=== PATIENT | male | born 1975 | race Caucasian/White ===

== ENCOUNTER 2019-03-11 11:21 | Emergency (ER) | payer OTHER ==
[~2019-03-11] VITALS: Ht 177.8 cm; Wt 79.4 kg
[2019-03-11] MEDS ORDERED: IBUPROFEN 800800 M1 PO (12:58)
[2019-03-11] MEDS ORDERED: NORCO 5-325 TA1 EAC1 PO (12:58)
[2019-03-11] MEDS ORDERED: KEFLEX500 M1 PO (12:58)
[2019-03-11] MEDS ORDERED: DOXYCYCLINE 10100 MG PO (12:58)
[2019-03-11 13:43] VITALS: BP 125/78
== END 2019-03-11 13:43 | disposition home or self-care (01) ==
LOC: M.ERS 11:21
DX: S62.511B Displaced fracture of proximal phalanx of right thumb, initial encounter for open fracture (principal); L03.116 Cellulitis of left lower limb; L03.115 Cellulitis of right lower limb; Z88.0 Allergy status to penicillin; W22.09XA Striking against other stationary object, initial encounter; Y93.89 Activity, other specified; Y92.89 Other specified places as the place of occurrence of the external cause; Y99.8 Other external cause status